=== PATIENT | female | born 1945 | race Caucasian/White ===

== ENCOUNTER 2018-07-13 19:32 | Inpatient (IN) | payer BC, MEDICARE ==
[~2018-07-13] VITALS: Ht 162.6 cm; Wt 66.7 kg
[~2018-07-13 19:32] MED LIST: ASTELIN30 ML; DEXAMETHASONE SOD PHOS INJ 4 MG/ML VIAL ONE; FIORICET; LIDOCAINE HCL 2% LOCAL INJ 5 ML SDV VIAL INJ ONE; ONDANSETRON HCL INJ 2MG/ML 2ML 2 MG/ML VIAL ONE; PROPOFOL IV EMULSION 10 MG/ML 20 ML VIAL ONE; SEVOFLURANE INHAL SOLN 250 ML PEN BTL ONE; Z.0.ALLEGRA60 MG; Z.0.BENICAR HCT 201; Z.0.CRESTOR5 MG PO; Z.0.EVISTA60 MG PO; Z.0.REGLAN10 MG PO; Z.0.TOPROL XL25 MG PO; Z.0.ZEGERID 40 MG1 E PO
--- OUTSIDE RECORDS SUMMARY | 2018-07-13 19:34 | XMS REPORT | Clinical Summary ---
Author Author [facility] Address Unknown Phone Unavailable Care Team Providers Care Embossograph Operator Name Role Phone Luisito Lassiter MD PCP Allergies Comments Active Allergy Reactions Severity Noted Date NAUSEA Ciprofloxacin GI 08/22/2016 Intolerance Phenytoin Sodium Extended Itching 08/21/2016 Levofloxacin Itching 08/22/2016 "HEADACHES" Escitalopram Oxalate Other (See 08/22/2016 Comments) Nitrofurantoin Itching 08/21/2016 Monohyd/M-Cryst " stomach cramps". States she drinks lactose free milk. Milk Diarrhea 08/22/2016 States severe leg cramps. Mbnjtgc-Fzg-Vxh Reductase Other (See 11/14/2016 Inhibitors Comments) " leg cramps" Ezetimibe-Simvastatin Other (See 08/21/2016 Comments) Watermelon 02/20/2018 Medications End Date Status Medication Sig Dispensed Refills Start Date Active metoprolol succinate XL Take 25 mg by 0 (TOPROL-XL) 25 mg 24 hr mouth every tablet morning. Active olmesartan (BENICAR) 20 Take 30 mg by 0 MG tablet mouth every morning. Active omeprazole-sodium Take 1 0 bicarbonate (ZEGERID) capsule by 40-1.1 mg-gram per mouth daily capsule before breakfast. Active raloxifene (EVISTA) 60 mg Take 60 mg by 0 tablet mouth every evening. Active metFORMIN (GLUCOPHAGE) Take 1,000 mg 0 1,000 mg tablet by mouth 2 (two) times a day with meals. Active sucralfate (CARAFATE) 1 Take 1 g by 0 gram tablet mouth 2 (two) times a day. Active chlordiazepoxide-clidiniu Take 1 0 m (LIBRAX) 5-2.5 mg per capsule by capsule mouth 2 (two) times a day. Active ondansetron ODT Take 4 mg by 0 (ZOFRAN-ODT) 4 MG mouth every 8 disintegrating tablet (eight) hours as needed for nausea or vomiting. Active fenofibrate (TRICOR) 48 Take 48 mg by 0 MG tablet mouth every evening. Active UBIDECARENONE (COQ-10 Take by 0 ORAL) mouth. Active cyanocobalamin (vitamin Take 1,000 0 B-12) 1000 MCG tablet mcg by mouth daily. Active METHYLCELLULOSE (CITRUCEL Take by 0 ORAL) mouth. Active butalbital-acetaminophen- Take 1 tablet 0 caff (FIORICET, ESGIC) by mouth 50-325-40 mg per tablet every 4 (four) hours as needed for headaches. Active azelastine (ASTELIN) 137 1 spray into 0 mcg (0.1 %) nasal spray each nostril 2 (two) times a day. Use in each nostril as directed Active traMADol (ULTRAM) 50 mg Take 50 mg by 0 tablet mouth every 6 (six) hours as needed for moderate pain. 02/14/2018 Discontinued empty container (NASAL 0 SPRAY BOTTLE) bottle 02/14/2018 Discontinued SACCHAROMYCES BOULARDII Take by 0 (PROBIOTIC, S.BOULARDII, mouth. ORAL) 02/14/2018 Discontinued azelastine (ASTELIN) 137 1 spray into 0 mcg (0.1 %) nasal spray each nostril 2 (two) times a day. Use in each nostril as directed 02/14/2018 Discontinued wxgnehgjqq-oznxtcj-vtryif Take 1 0 ne (FIORINAL) 50-325-40 capsule by mg per capsule mouth every 4 (four) hours as needed for headaches. 02/14/2018 Discontinued HYDROcodone-acetaminophen Take 1 tablet 0 (NORCO) 5-325 mg per by mouth tablet every 6 (six) hours as needed for moderate pain. 02/14/2018 Discontinued acetaminophen-codeine Take 1 tablet 0 (TYLENOL WITH CODEINE #3) by mouth 300-30 mg per tablet every 4 (four) hours as needed for moderate pain. 02/14/2018 Discontinued MULTIVITAMIN ORAL Take by 0 mouth. 02/14/2018 Discontinued kesjywo-[id number]-N-[id number] Take by 0 erals 500 mg calcium- 400 mouth. unit-15 mcg tablet 02/20/2018 Discontinued omeprazole/sodium Take 40 mg by 0 bicarbonate (ZEGERID mouth 2 (two) ORAL) times a day. 02/20/2018 Discontinued vitamin E 400 UNIT Take 400 0 capsule Units by mouth daily. Active Problems No known active problems Encounters Care Team Description Date Type Specialty Ted Mercado MD TRANSFORAMINAL EPIDURAL STEROID INJECTION L4-5 05/28/2018 Surgery Missy Hough MD 05/28/2018 Anesthesia Event Ted Mercado MD 05/28/2018 Hospital Encounter Ted Mercado MD Low back pain, unspecified back pain laterality, unspecified chronicity, with sciatica presence unspecified (Primary Dx) 04/29/2018 Transcribe Physical Therapy Orders Ted Mercado MD Low back pain, unspecified back pain laterality, unspecified chronicity, with sciatica presence unspecified (Primary Dx) 03/28/2018 Transcribe Physical Therapy Orders Ted Mercado MD Arthralgia of hip, unspecified laterality (Primary Dx); Low back pain, unspecified back pain laterality, unspecified chronicity, with sciatica presence unspecified 03/12/2018 Transcribe Physical Therapy Orders Porter Villagomez MD 02/20/2018 Anesthesia General Surgery Event Krys Hampton MD EXCISION, LEFT UPPER LIP LESION W/ CLOSURE 02/20/2018 Surgery General Surgery Krys Hampton MD Preoperative testing 02/20/2018 Hospital General Surgery Encounter Krys Hampton MD 02/14/2018 Hospital Radiology Encounter Krys Hampton MD Preoperative testing (Primary Dx) 02/14/2018 Pre-Admit Pre-Admission Testing Testing Appointment Krys Hampton MD Lip lesion 01/25/2018 Hospital Radiology Encounter Krys Hampton MD Lip lesion (Primary Dx) 01/17/2018 Transcribe Access Orders Ted Mercado MD Low back pain, unspecified back pain laterality, unspecified chronicity, with sciatica presence unspecified (Primary Dx) 12/04/2017 Transcribe Physical Therapy Orders Ted Mercado MD EPIDURAL STERIOD INJECTION CAUDAL 10/23/2017 Surgery Xu Adams MD 10/23/2017 Anesthesia Event Ted Mercado MD 10/23/2017 Hospital Encounter eKo Diaz DPM, MD Peroneal tendinitis of left lower extremity (Primary Dx) 10/09/2017 Transcribe Physical Therapy Orders Keo Diaz DPM, MD 10/04/2017 Telephone Physical Therapy Keo Diaz DPM, MD Peroneal tendinitis of left lower extremity (Primary Dx) 09/04/2017 Transcribe Physical Therapy Orders after 07/12/2017 Family History Medical History Relation Name Comments Hypertension Mother Relation Name Status Comments Mother Social History Date Tobacco Use Types Packs/Day Years Used Never Smoker Smokeless Tobacco: Never Used Alcohol Use Drinks/Week oz/Week Comments No Sex Assigned at Date Recorded Not on file Industry Job Start Date Occupation Not on file Not on file Not on file Travel End Travel History Travel Start No recent travel history available. Last Filed Vital Signs Time Taken Vital Sign Reading 05/28/2018 9:15 AM [employer]CRETE PANEL IN[employer]ALL[employer] Blood Pressure 162/88 05/28/2018 9:20 AM CONCRETE PANEL INSTALLER Pulse 69 05/28/2018 8:45 AM CONCRETE PANEL INSTALLER Temperature 36.7 C (98 F) 05/28/2018 9:05 AM CONCRETE PANEL INSTALLER Respiratory Rate 20 05/28/2018 9:20 AM CONCRETE PANEL INSTALLER Oxygen Saturation 98% - Inhaled Oxygen - Concentration 05/28/2018 7:09 AM CONCRETE PANEL INSTALLER Weight 61.9 kg (136 lb 6.4 oz) 05/28/2018 7:09 AM CONCRETE PANEL INSTALLER Height 157.5 cm (5' 2") 05/28/2018 7:09 AM CONCRETE PANEL INSTALLER Body Mass Index 24.95 Plan of Treatment Health Maintenance Due Date Last Done Comments BREAST CANCER SCREENING 1996 COLON CANCER SCREENING 1996 SHINGLES VACCINES (1 of 1996 2) PNEUMOCOCCAL 09/01/2011 POLYSACCHARIDE VACCINE AGE 65 AND OVER PNEUMOCOCCAL-13 09/01/2011 INFLUENZA VACCINE 01/16/2018 Procedures Comments Procedure Name Priority Date/Time Associated Diagnosis INJECTION, STEROID, 05/28/2018 CHRONIC PAIN, SPINE, LUMBAR, EPIDURAL, 9:05 AM CONCRETE PANEL INSTALLER SPONDYLOSIS, LUMBOSACRAL, SINGLE SPINAL STENOSIS OR FL < 1 HOUR Routine 05/28/2018 8:35 AM CONCRETE PANEL INSTALLER ECG 12-LEAD STAT 05/28/2018 7:49 AM CONCRETE PANEL INSTALLER POC GLUCOSE Routine 05/28/2018 7:28 AM CONCRETE PANEL INSTALLER POC GLUCOSE Routine 02/20/2018 2:36 PM CDT SURGICAL PATHOLOGY Routine 02/20/2018 REQUEST 1:31 PM CDT W[place] AN ELECTIVE Routine 02/20/2018 ENDOTRACHEAL AIRWAY 1:21 PM CDT Procedure Note - Porter Villagomez MD - 02/20/2018 1:21 PM CDT Airway Performed by: PORTER VILLAGOMEZ Authorized by: PORTER VILLAGOMEZ Location: OR Urgency: Elective Difficult Airway: No Anesthesio logist: PORTER VILLAGOMEZ Performed by: anesthesineo avalos Preoxygena gustavo with 100% O2: Yes C-spine Precaution s Maintained Throughout : Yes Mask Ventilatio n: Easy mask Final Airway Type: Endotrache al airway Final Endotrache al Airway: ETT Cuffed: Yes Technique Used: Direct laryngosco py Devices/Me thods Used in Placement: Intubatin g stylet Insertion Site: Oral Blade Type: Anders Laryngosco pe Blade/Vide olaryngosc ope Blade Size: 2 ETT Size (mm): 7.0 Measured from: Lips ETT to Lips (cm): 21 Placement Verified by: CO2 detection, direct visualizat ion and equal breath sounds Laryngosco pic view: Grade IIa - partial view of glottis Rapid Sequence Induction (RSI): No Modified RSI: No Number of Attempts at Approach: 1 EXCISION, MASS 02/20/2018 VASCULAR LIP LESION 12:30 PM CDT K13.79, L98.9 POC GLUCOSE Routine 02/20/2018 11:22 AM CDT XR CHEST 2 VW Routine 02/14/2018 Preoperative testing 4:22 PM CDT ECG 12-LEAD Routine 02/14/2018 Preoperative testing 3:41 PM CDT PARTIAL THROMBOPLASTIN Routine 02/14/2018 Preoperative testing TIME (PTT) 3:41 PM CDT PROTHROMBIN TIME WITH INR Routine 02/14/2018 Preoperative testing 3:41 PM CDT US SOFT TISSUE HEAD NECK Routine 01/25/2018 Lip lesion 3:00 PM CDT INJECTION, STEROID, 10/23/2017 CHRONIC PAIN, SPINAL SPINE, LUMBAR, EPIDURAL, 10:02 AM CDT STENOSIS, LOW BACK PAIN SINGLE OR FL < 1 HOUR Routine 10/23/2017 10:00 AM CDT POC GLUCOSE Routine 10/23/2017 9:26 AM CDT ECG 12-LEAD STAT 10/23/2017 9:06 AM CDT after 07/12/2017 Results * OR FL < 1 Hour (05/28/2018 8:35 AM CONCRETE PANEL INSTALLER) Only the most recent of 2 results within the time period is included. Narrative Performed At EXAMINATION:OR FL 1 HOUR [facility] C-arm fluoroscopy was requested in OR. FLUORO TIME 00:15 IMAGE 0 IMPRESSION: Separate operative report will be issued by the physician performing the procedure. [id number] Procedure Note Hm Interface, Radiology Results Incoming - 05/28/2018 11:58 AM CONCRETE PANEL INSTALLER EXAMINATION: OR FL 1 HOUR C-arm fluoroscopy was requested in OR. FLUORO TIME 00:15 IMAGE 0 IMPRESSION: Separate operative report will be issued by the physician performing the procedure. [id number] Performing Organization Address [facility] Cent[facility] Phone Number [facility] [address] [place] [address] * ECG 12 lead (05/28/2018 7:49 AM CONCRETE PANEL INSTALLER) Only the most recent of 3 results within the time period is included. Ventricular rate 70 [facility] Atrial rate 70 [facility] WV interval 150 [facility] QRSD interval 86 [facility] QT interval 494 [facility] QTC interval 533 [facility] P axis 1 57 [facility] QRS axis 1 -25 [facility] T wave axis 12 [facility] EKG impression Normal sinus rhythm-Prolonged [facility] QT-Abnormal ECG-In automated comparison with ECG of 14-FEB-2018 15:41,-No significant change was found- Narrative Performed At Performing Organization Address [facility] Cent[facility]t Phone Number [employer] M[facility] [address] [place] [address] * POC glucose (05/28/2018 7:28 AM CONCRETE PANEL INSTALLER) Only the most recent of 4 results within the time period is included. POC glucose 114 (H) 65 - 99 mg/dL [facility] Comment: [facility] Meter ID: [id number] Health Education Specialist: Nacho Lord Performing Organization Address City/State/Zipcode Phone Number [facility] [place] [id number] [place] [address] [place] [address] PATHOLOGY AND GENOMIC MEDICINE [address] [place] [address] [facility] * Surgical pathology request (02/20/2018 1:31 PM CDT) [facility] DEPARTMENT OF PATHOLOGY AND GENOMIC MEDICINE Surgical pathology report See link below for PDF Lab [facility] DEPARTMENT OF Report PATHOLOGY AND GENOMIC MEDICINE Result status This is Final Report for [facility] DEPARTMENT OF [id number] PATHOLOGY AND GENOMIC MEDICINE Performing Organization Address [facility] Phone Number [facility] DEPARTMENT [address] [place] [phone] PATHOLOGY AND GENOMIC MEDICINE * XR Chest 2 Vw (02/14/2018 4:22 PM CDT) Narrative Performed At EXAMINATION:XR CHEST 2 VW [facility] CLINICAL HISTORY:Z01.818 Encounter for other preprocedural examination, PREOP COMPARISON:November 01, 2013. FINDINGS:The heart is enlarged. The mediastinum is otherwise unremarkable. The lungs are free of acute abnormalities. There is mild scarring or atelectasis at the lung bases. IMPRESSION: 1. Mild scarring or atelectasis at the lung bases. 2. Heart size is borderline [id number] Procedure Note Interface, Radiology Results Incoming - 02/14/2018 5:12 PM CDT EXAMINATION: XR CHEST 2 VW CLINICAL HISTORY: Z01.818 Encounter for other preprocedural examination, PREOP COMPARISON: November 01, 2013. FINDINGS:The heart is enlarged. The mediastinum is otherwise unremarkable. The lungs are free of acute abnormalities. There is mild scarring or atelectasis at the lung bases. IMPRESSION: 1. Mild scarring or atelectasis at the lung bases. 2. Heart size is borderline [id number] Performing Organization Address City/[facility]/Zipcode Phone Number [facility] [address] [place] [address] * Partial thromboplastin time, activated (02/14/2018 3:41 PM CDT) PTT 29.4 23.0 - 36.0 sec [facility] DEPARTMENT OF Comment: PATHOLOGY AND PTT therapeutic range for GENOMIC MEDICINE unfractionated heparin is 61.0-112.0 seconds which corresponds to Anti-Xa 0.3-0.7 U/ml. Specimen Blood Performing Organization Address [facility] Phone Number [address] [place] [phone] PATHOLOGY AND [employer] MEDICINE * Prothrombin time with INR (02/14/2018 3:41 PM CDT) Prothrombin time 12.6 12.0 - 15.0 sec [facility] DEPARTMENT OF PATHOLOGY AND [employer] MEDICINE INR 0.9 [facility] DEPARTMENT OF Comment: PATHOLOGY AND The International Normalized GENOMIC MEDICINE Ratio (INR) is a therapeutic monitoring tool for patients who are stable on oral anticoagulant therapy. An INR of 2.0-3.0 is suggested for deep vein thrombosis/pulmonary embolism. Specimen Blood Performing Organization Address [facility] Phone Number [address] [place] [phone] PATHOLOGY AND [facility] MEDICINE * US Soft Tissue Head Neck (01/25/2018 3:00 PM CDT) Narrative Performed At EXAMINATION:US SOFT TISSUE HEAD NECK [facility] CLINICAL HISTORY:K13.0 Diseases of lips, L UPPER LIP VASCULAR LESION COMPARISON:None. Real-time ultrasound images performed. Permanent ultrasound images obtained for the patient's record. FINDINGS: Limited ultrasound scanning performed over the left upper lip at site of a palpable nodule near the vermilion border. Hypoechoic nodule extending from the skin surface identified. Nodule measures approximately 1.6 cm x 1.7 cm x 1.5 cm. Mild lobulation of border is noted. Punctate echogenicities within the nodule are noted possibly representing phleboliths. Color flow and spectral wave Doppler evaluation demonstrated no significant internal flow. Small vessels at the periphery of the nodule demonstrating arterial and venous flow noted. No large arterial feeder vessels or draining veins identified. IMPRESSION: Approximate 1.6 cm nodule deep to the cutaneous lesion at the left upper lip per million border Punctate echogenicities within the nodule possibly represent phleboliths. No significant internal flow Small peripheral arterial and venous vessels No large, arterial or venous vessels [id number] Procedure Note Interface, Radiology Results Incoming - 01/25/2018 4:27 PM CDT EXAMINATION: US SOFT TISSUE HEAD NECK CLINICAL HISTORY: K13.0 Diseases of lips, L UPPER LIP VASCULAR LESION COMPARISON: None. Real-time ultrasound images performed. Permanent ultrasound images obtained for the patient's record. FINDINGS: Limited ultrasound scanning performed over the left upper lip at site of a palpable nodule near the vermilion border. Hypoechoic nodule extending from the skin surface identified. Nodule measures approximately 1.6 cm x 1.7 cm x 1.5 cm. Mild lobulation of border is noted. Punctate echogenicities within the nodule are noted possibly representing phleboliths. Color flow and spectral wave Doppler evaluation demonstrated no significant internal flow. Small vessels at the periphery of the nodule demonstrating arterial and venous flow noted. No large arterial feeder vessels or draining veins identified. IMPRESSION: Approximate 1.6 cm nodule deep to the cutaneous lesion at the left upper lip per million border Punctate echogenicities within the nodule possibly represent phleboliths. No significant internal flow Small peripheral arterial and venous vessels No large, arterial or venous vessels [id number] Performing Organization Address City/State/Zipcode Phone Number [facility] [address] [place] [address] after 07/12/2017 Insurance Payer Benefit Subscriber ID Type Phone Address Plan / Group HUMANA MEDICARE HUMANA xxxxxxxxx PPO MEDICARE PPO[facility]PFFS/E [facility] Advance Directives Patient has advance care planning documents on file. For more information, mathew walker contact: [facility] [address] [place] [address]
[2018-07-13] MEDS ORDERED: KETOROLAC TROMETHAMINE 30 MG/ML VIAL IV NR (20:00)
[2018-07-13 20:15] LABS: BASOPHILS % 0.3 % (0.0-1.0); EOSINOPHILS # (AUTO) 0.1 (0.0-0.4); HEMATOCRIT 30.3 % (34.2-44.1); HEMOGLOBIN 10.1 g/dL (12.0-16.0); LYMPHOCYTES % 9.9 % (18.0-39.1); MEAN CORPUSCULAR HEMOGLOBIN 27.8 pg (28-32); MEAN CORPUSCULAR HGB CONC 33.3 g/dL (31-35); MEAN CORPUSCULAR VOLUME 83.5 fL (81-99); MONOCYTES # (AUTO) 0.6 (0.2-0.8); MONOCYTES % 5.9 % (4.4-11.3); NEUTROPHILS # (AUTO) 8.3 (2.1-6.9); NEUTROPHILS % 82.5 % (38.7-80.0); PLATELET COUNT 283 x10e3/uL (140-360); RED BLOOD COUNT 3.63 x10e6/uL (3.6-5.1); RED CELL DISTRIBUTION WIDTH 15.1 % (11.7-14.4)
--- NOTE | 2018-07-13 20:22 | NUR ---
URINE OBTAINED FROM FOR LAB ANALYSIS
[2018-07-13 20:27] LABS: ALBUMIN 4.5 g/dL (3.5-5.0); ALBUMIN/GLOBULIN RATIO 1.7 (0.8-2.0); ANION GAP 17.9 mmol/L (8-16); CALCIUM 10.4 mg/dL (8.4-10.2); CREATININE, SERUM 1.2 mg/dL (0.57-1.11); POTASSIUM 3.9 mmol/L (3.5-5.1)
--- NOTE | 2018-07-13 20:39 | Diagnostic Imaging Report ---
EXAM: CT Abdomen and Pelvis WITHOUT contrast INDICATION: LEFT FLANK PAIN, HX CHRONIC KIDNEY STONES COMPARISON: None. TECHNIQUE: Abdomen and pelvis were scanned utilizing a multidetector helical scanner from the lung base to the pubic symphysis without administration of IV contrast. Absence of intravenous contrast decreases sensitivity for detection of focal lesions and vascular pathology. Coronal and sagittal reformations were obtained. Routine protocol was performed. IV CONTRAST: None ORAL CONTRAST: Water COMPLICATIONS: None RADIATION DOSE: Total DLP: 302 mGy*cm Estimated effective dose: (DLP x 0.015 x size factor) mSv Dose modulation, iterative reconstruction, and/or weight based adjustment of the mA/kV was utilized to reduce the radiation dose to as low as reasonably achievable. FINDINGS: LINES and TUBES: None. LOWER THORAX: Unremarkable HEPATOBILIARY: No focal hepatic lesions. No biliary ductal dilation. GALLBLADDER: Absent SPLEEN: No splenomegaly. PANCREAS: No focal masses or ductal dilatation. ADRENALS: Left adrenal 1.2 cm nodule, indeterminate measuring 38 Hounsfield unit. 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 KIDNEYS/URETERS: Moderate left hydroureteronephrosis secondary to a 0.7 x 0.5 x 0.5 cm (SI x AP x TV) stone in the distal left ureter with perinephric and periureteral stranding. Additional nonobstructing calculi measuring up to 0.6 cm. No right hydronephrosis. Lobulated contours of the right kidney. Multiple nonobstructing calculi measuring up to 0.4 cm. GI TRACT: No abnormal distention, wall thickening, or evidence of bowel obstruction. There are diverticula within the colon without evidence of diverticulitis. Appendix is normal. PELVIC ORGANS/BLADDER: Hysterectomy. LYMPH NODES: No lymphadenopathy. VESSELS: There is mild atherosclerotic disease in the aorta and major arterial branches. No abdominal aortic aneurysm. PERITONEUM / RETROPERITONEUM: No free air or fluid. BONES: There are mild degenerative changes in the lumbar spine. SOFT TISSUES: Unremarkable. IMPRESSION: 1. Obstructing 0.7 x 0.5 x 0.5 cm stone in the distal left ureter causing moderate upstream hydroureteronephrosis. 2. Additional nonobstructing calculi bilaterally. 3. Colonic diverticulosis. 4. Indeterminate left adrenal 1.[address] renal mass protocol for further characterization. Signed by: DR. Jason Juarez MD on 07/13/2018 8:36 PM
[2018-07-13 21:04] LABS: COLOR,URINE YELLOW (YELLOW); LEUKOCYTE ESTERASE ,URINE NEGATIVE (NEGATIVE); NITRITE,URINE NEGATIVE (NEGATIVE)
[2018-07-13 21:05] LABS: BILIRUBIN,URINE NEGATIVE (NEGATIVE); CLARITY,URINE SL CLOUDY (CLEAR); KETONES,URINE NEGATIVE (NEGATIVE); PROTEIN,URINE DIPSTICK TRACE (NEGATIVE); URINE UROBILINOGEN 0.2 mg/dL (0.2 - 1)
[2018-07-13 21:18] LABS: EPITHELIAL CELLS,URINE RARE /LPF; TRANSITIONAL EPI CELLS,URINE RARE; WBC,URINE (MAN) 0-5 /HPF (0-5)
[2018-07-13 21:19] LABS: AMORPHOUS SEDIMENT,URINE MODERATE (FEW)
[2018-07-13] MEDS ORDERED: MORPHINE SULFATE 2 MG/ML SYR 1ML IV PRN (21:30)
[2018-07-13] MEDS ORDERED: ONDANSETRON HCL INJ 2MG/ML 2ML 2 MG/ML VIAL IV PRN (21:30)
--- OUTSIDE RECORDS SUMMARY | 2018-07-13 22:10 | XMS REPORT ---
Author Author [facility] Address Unknown Phone Unavailable Care Team Providers Care Flow Nurse Name Role Phone Kitty BECERRA Unavailable Unavailable Problems This patient has no known problems. Allergies, Adverse Reactions, Alerts This patient has no known allergies or adverse reactions. Medications This patient has no known medications. Results Test Description Test Time Test Comments Text Results Atomic Results Result Comments CT ABDOMEN/PELVIS WO 2018-07-13 20:22:00 [place] [address] Patient Name: PORFIRIO GUIDRY MR #: [id number] : 1945 Age/Sex: 72/F Req #: [id number] Adm Physician: Ordered by: EDISON BECERRA MD Report #: [id number] Location: ER Room/Bed: Procedure: [id number] CT/CT ABDOMEN/PELVIS WO Exam Date: 07/13/18 Exam Time: 2004 REPORT STATUS: Signed EXAM: CT Abdomen and Pelvis WITHOUT contrast INDICATION: LEFT FLANK PAIN, HX CHRONIC KIDNEY STONES COMPARISON: None. TECHNIQUE: Abdomen and pelvis were scanned utilizing a multidetector helical scanner from the lung base to the pubic symphysis without administration of IV contrast. Absence of intravenous contrast decreases sensitivity for detection of focal lesions and vascular pathology. Coronal and sagittal reformations were obtained. Routine protocol was performed. IV CONTRAST: None ORAL CONTRAST: Water COMPLICATIONS: None RADIATION DOSE: Total DLP: 302 mGy*cm Estimated effective dose: (DLP x 0.015 x size factor) mSv Dose modulation, iterative reconstruction, and/or weight based adjustment of the mA/kV was utilized to reduce the radiation dose to as low as reasonably achievable. FINDINGS: LINES and TUBES: None. LOWER THORAX: Unremarkable HEPATOBILIARY: No focal hepatic lesions. No biliary ductal dilation. GALLBLADDER: Absent SPLEEN: No splenomegaly. PANCREAS: No focal masses or ductal dilatation. ADRENALS: Left adrenal 1.2 cm nodule, indeterminate measuring 38 Hounsfield unit. 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 KIDNEYS/URETERS: Moderate left hydroureteronephrosis secondary to a 0.7 x 0.5 x 0.5 cm (SI x AP x TV) stone in the distal left ureter with perinephric and periureteral stranding. Additional nonobstructing calculi measuring up to 0.6 cm. No right hydronephrosis. Lobulated contours of the right kidney. Multiple nonobstructing calculi measuring up to 0.4 cm. GI TRACT: No abnormal dist ention, wall thickening, or evidence of bowel obstruction. There are diverticula within the colon without evidence of diverticulitis. Appendix is normal. PELVIC ORGANS/BLADDER: Hysterectomy. LYMPH NODES: No lymphadenopathy. VESSELS: There is mild atherosclerotic disease in the aorta and major arterial branches. No abdominal aortic aneurysm. PERITONEUM / RETROPERITONEUM: No free air or fluid. BONES: There are mild degenerative changes in the lumbar spine. SOFT TISSUES: Unremarkable. IMPRESSION: 1. Obstructing 0.7 x 0.5 x 0.5 cm stone in the distal left ureter causing moderate upstream hydroureteronephrosis. 2. Additional nonobstructing calculi bilaterally. 3. Colonic diverticulosis. 4. Indeterminate left adrenal 1.[address] renal mass protocol for further characterization. Signed by: DR. Jason Castillo MD on 07/13/2018 8:36 PM Dictated By: JASON CASTILLO MD 35 Transcribed By: BRIEN on 07/13/182035 COPY TO: EDISON BECERRA MD
--- OUTSIDE RECORDS SUMMARY | 2018-07-13 22:10 | XMS REPORT | Clinical Summary ---
Author Author [facility] Organization [facility] Address Unknown Phone Unavailable Care Team Providers Care Supervisor Records Change Name Role Phone Luisito Lassiter MD PCP Allergies Comments Active Allergy Reactions Severity Noted Date NAUSEA Ciprofloxacin GI 08/22/2016 Intolerance Phenytoin Sodium Extended Itching 08/21/2016 Levofloxacin Itching 08/22/2016 "HEADACHES" Escitalopram Oxalate Other (See 08/22/2016 Comments) Nitrofurantoin Itching 08/21/2016 Monohyd/M-Cryst " stomach cramps". States she drinks lactose free milk. Milk Diarrhea 08/22/2016 States severe leg cramps. Wkkotjt-Nro-Xrh Reductase Other (See 11/14/2016 Inhibitors Comments) " [...] in each nostril as directed 02/14/2018 Discontinued veylhduyqx-cciodya-oyatvn Take 1 0 ne (FIORINAL) 50-325-40 capsule [...] ORAL Take by 0 mouth. 02/14/2018 Discontinued pjpzewq-[id number] Take by 0 erals 500 mg calcium- [...] Event Ted Mercado MD 10/23/2017 Hospital Encounter Keo Diaz DPM, MD Peroneal tendinitis of [...] Taken Vital Sign Reading 05/28/2018 9:15 AM ATMOSPHERIC SCIENCES PROFESSOR Blood Pressure 162/88 05/28/2018 9:20 AM ATMOSPHERIC SCIENCES PROFESSOR Pulse 69 05/28/2018 8:45 AM ATMOSPHERIC SCIENCES PROFESSOR Temperature 36.7 C (98 F) 05/28/2018 9:05 AM ATMOSPHERIC SCIENCES PROFESSOR Respiratory Rate 20 05/28/2018 9:20 AM ATMOSPHERIC SCIENCES PROFESSOR Oxygen Saturation 98% - Inhaled Oxygen - Concentration 05/28/2018 7:09 AM ATMOSPHERIC SCIENCES PROFESSOR Weight 61.9 kg (136 lb 6.4 oz) 05/28/2018 7:09 AM ATMOSPHERIC SCIENCES PROFESSOR Height 157.5 cm (5' 2") 05/28/2018 7:09 AM ATMOSPHERIC SCIENCES PROFESSOR Body Mass Index 24.95 Plan of Treatment Health Maintenance Due Date Last Done Comments BREAST CANCER SCREENING 1996 COLON CANCER SCREENING 1996 SHINGLES VACCINES (1 of 1996 2) PNEUMOCOCCAL 09/01/2011 POLYSACCHARIDE VACCINE AGE 65 AND OVER PNEUMOCOCCAL-13 09/01/2011 INFLUENZA VACCINE 01/16/2018 Procedures Comments Procedure Name Priority Date/Time Associated Diagnosis INJECTION, STEROID, 05/28/2018 CHRONIC PAIN, SPINE, LUMBAR, EPIDURAL, 9:05 AM ATMOSPHERIC SCIENCES PROFESSOR SPONDYLOSIS, LUMBOSACRAL, SINGLE SPINAL STENOSIS OR [place] < 1 HOUR Routine 05/28/2018 8:35 AM ATMOSPHERIC SCIENCES PROFESSOR ECG 12-LEAD STAT 05/28/2018 7:49 AM ATMOSPHERIC SCIENCES PROFESSOR POC GLUCOSE Routine 05/28/2018 7:28 AM ATMOSPHERIC SCIENCES PROFESSOR POC GLUCOSE Routine 02/20/2018 2:36 PM CDT SURGICAL PATHOLOGY Routine 02/20/2018 REQUEST 1:31 PM CDT SC AN ELECTIVE Routine 02/20/2018 ENDOTRACHEAL AIRWAY 1:21 [...] FL < 1 Hour (05/28/2018 8:35 AM ATMOSPHERIC SCIENCES PROFESSOR) Only the most recent of 2 results within the time period is included. Narrative Performed At EXAMINATION:[place] 1 HOUR [facility] C-arm fluoroscopy was requested in OR. FLUORO TIME 00:15 IMAGE 0 IMPRESSION: Separate operative report will be issued by the physician performing the procedure. [id number] Procedure Note Hm Interface, Radiology Results Incoming - 05/28/2018 11:58 AM ATMOSPHERIC SCIENCES PROFESSOR EXAMINATION: [place] 1 HOUR C-arm fluoroscopy was requested in OR. FLUORO TIME 00:15 IMAGE 0 IMPRESSION: Separate operative report will be issued by the physician performing the procedure. [id number] Performing Organization Address [facility] Phone Number [facility] [address] [place] [address] * ECG 12 lead (05/28/2018 7:49 AM ATMOSPHERIC SCIENCES PROFESSOR) Only the most recent of 3 results within the time period is included. Ventricular rate 70 [facility] Atrial rate 70 [facility] SC interval 150 [facility] QRSD interval 86 [facility] QT interval 494 [facility] QTC interval 533 [facility] P axis 1 57 [facility] QRS axis 1 -25 [facility] T wave axis 12 [facility] EKG impression Normal sinus rhythm-Prolonged [facility] MUSE QT-Abnormal ECG-In automated comparison with ECG of 14-FEB-2018 15:41,-No significant change was found- Narrative Performed At Performing Organization Address [facility] Phone Number [facility] [address] [place] [address] * POC glucose (05/28/2018 7:28 AM ATMOSPHERIC SCIENCES PROFESSOR) Only the most recent of 4 results within the time period is included. POC glucose 114 (H) 65 - 99 mg/dL [facility] Comment: [facility] Meter ID: [id number] Map Plotter: Nacho Lord Performing Organization Address City/State/Zipcode Phone Number [facility] [address] [id number] [place] [address] [place] [address] PATHOLOGY AND GENOMIC MEDICINE [address] [place] [address] [facility] * Surgical pathology request (02/20/2018 1:31 PM CDT) [facility] DEPARTMENT OF PATHOLOGY AND GENOMIC MEDICINE Surgical pathology report See link below for PDF Lab [facility] DEPARTMENT OF Report PATHOLOGY AND GENOMIC MEDICINE Result status This is Final Report for [facility] DEPARTMENT OF [id number] PATHOLOGY AND GENOMIC MEDICINE Performing Organization Address [facility] Phone Number [facility] DEPARTMENT [address] [place] [phone] PATHOLOGY AND GENOMIC MEDICINE * XR Chest [...] lung bases. 2. Heart size is borderline [id number] Procedure Note Interface, Radiology Results Incoming - [...] lung bases. 2. Heart size is borderline [id number] Performing Organization Address City/[facility]/Zipcode Phone Number [facility] [address] [place] [address] * Partial thromboplastin time, activated (02/14/2018 3:41 PM CDT) PTT 29.4 23.0 - 36.0 sec [facility] DEPARTMENT OF Comment: PATHOLOGY AND PTT therapeutic range for GENOMIC MEDICINE unfractionated heparin is 61.0-112.0 seconds which corresponds to Anti-Xa 0.3-0.7 U/ml. Specimen Blood Performing Organization Address [facility] Phone Number [address] [place] [phone] PATHOLOGY AND [facility] * Prothrombin time with INR (02/14/2018 3:41 PM CDT) Prothrombin time 12.6 12.0 - 15.0 sec [facility] DEPARTMENT OF PATHOLOGY AND [facility] INR 0.9 [facility] DEPARTMENT OF Comment: PATHOLOGY AND The International Normalized GENOMIC MEDICINE Ratio (INR) is a therapeutic monitoring tool for patients who are stable on oral anticoagulant therapy. An INR of 2.0-3.0 is suggested for deep vein thrombosis/pulmonary embolism. Specimen Blood Performing Organization Address [facility] Phone Number [address] [place] [phone] PATHOLOGY AND [facility] * US Soft Tissue Head Neck [...] vessels No large, arterial or venous vessels [id number] Procedure Note Interface, Radiology Results Incoming - [...] vessels No large, arterial or venous vessels [id number] Performing Organization Address City/State/Zipcode Phone Number [facility] [address] [place] [address] after 07/12/2017 Insurance Payer Benefit Subscriber ID Type Phone Address Plan / Group HUMANA MEDICARE HUMANA xxxxxxxxx PPO MEDICARE PPO/PFFS/E [facility] Advance Directives Patient has advance care planning documents on file. For more information, mathew walker contact: [facility] [address] [place] [address]
[2018-07-13] MEDS ORDERED: METFORMIN HCL500 MG PO (22:13)
[2018-07-13] MEDS ORDERED: ASTEPRO205.5 MCG/ (22:13)
[2018-07-13] MEDS ORDERED: TRICOR48 MG PO (22:13)
[2018-07-13] MEDS ORDERED: ULTRAM 50MG50 MG PO (22:13)
[2018-07-13] MEDS ORDERED: SUCRALFATE1 GM PO (22:13)
[2018-07-13] MEDS ORDERED: ZOFRAN4 MG PO (22:13)
[2018-07-13] MEDS ORDERED: CEFUROXIME500 MG PO (22:13)
[2018-07-13] MEDS ORDERED: LIBRAX CAPSULE1 EACH PO (22:13)
[2018-07-13] MEDS ORDERED: FIORINAL 50-321 EACH PO (22:13)
[2018-07-13] MEDS ORDERED: BENICAR20 MG PO (22:13)
[2018-07-13] MEDS ORDERED: DEXTROSE 50% SYRINGE 50 ML IV PRN (22:30)
[2018-07-13 22:55] VITALS: BP 142/79
[2018-07-13 22:57] VITALS: BP 142/79
[2018-07-13] MEDS: SODIUM CHLORIDE 0.9% 1000ML 1,000 ML IV SCH (23:21)
[2018-07-13] MEDS: CEFUROXIME AXETIL 250 MG TAB PO SCH (23:22)
[2018-07-13 23:42] VITALS: BP 142/79
[2018-07-14] VITALS (7 sets, daily range): BP systolic 141–181; BP diastolic 69–93
--- NOTE | 2018-07-14 00:57 | NUR ---
Report received from THEATRE PROFESSOR Iban. Patient admitted form ER at 2225 by stretcher.Patient alert/oriented x3 walking around in the room.Denied pain and no SOB. No respiratory distress noted. Head to toe assessment completed. No skin breakdown noted.Patient instructed call for help as needed. Bed in lower position.locked. Call leyva within reach. Will continue to monitor.
[2018-07-14] MEDS ORDERED: METOPROLOL SUCCINATE 25 MG TAB XL PO ONE (05:00)
--- NOTE | 2018-07-14 05:14 | NUR ---
Called Dr. Lassiter, answered Dr. Kitty Ruiz informed about patient's high BP:180/90(right arm) and 179/66(left arm).Ordered received at this time po metoprolol 25mg once.
[2018-07-14] MEDS: SODIUM CHLORIDE 0.9% 1000ML 1,000 ML IV SCH ×3 (05:30→23:07)
[2018-07-14 05:41] LABS: BASOPHILS % 0.2 % (0.0-1.0); EOSINOPHILS # (AUTO) 0.1 (0.0-0.4); EOSINOPHILS % 1.3 % (0.0-6.0); HEMATOCRIT 27.9 % (34.2-44.1); HEMOGLOBIN 9.6 g/dL (12.0-16.0); LYMPHOCYTES # (AUTO) 1.3 (1.0-3.2); LYMPHOCYTES % 15.6 % (18.0-39.1); MEAN CORPUSCULAR HEMOGLOBIN 28.8 pg (28-32); MEAN CORPUSCULAR HGB CONC 34.4 g/dL (31-35); MEAN CORPUSCULAR VOLUME 83.8 fL (81-99); MONOCYTES # (AUTO) 0.6 (0.2-0.8); MONOCYTES % 7.6 % (4.4-11.3); NEUTROPHILS # (AUTO) 6.2 (2.1-6.9); NEUTROPHILS % 74.9 % (38.7-80.0); PLATELET COUNT 249 x10e3/uL (140-360); RED BLOOD COUNT 3.33 x10e6/uL (3.6-5.1)
[2018-07-14] MEDS ORDERED: MORPHINE SULFATE INJ 4 MG/ML INJ 1ML ONE (05:42)
[2018-07-14 06:04] LABS: ALBUMIN 3.8 g/dL (3.5-5.0); ALBUMIN/GLOBULIN RATIO 1.6 (0.8-2.0); ANION GAP 15.4 mmol/L (8-16); CALCIUM 9.5 mg/dL (8.4-10.2); CREATININE, SERUM 1.21 mg/dL (0.57-1.11); POTASSIUM 4.4 mmol/L (3.5-5.1)
--- NOTE | 2018-07-14 06:48 | NUR ---
Report given to TETE Panda.
[2018-07-14] MEDS: METOPROLOL SUCCINATE 25 MG TAB XL PO SCH (08:40)
[2018-07-14] MEDS: SUCRALFATE 1 GM TAB PO SCH ×2 (08:40→16:54)
[2018-07-14] MEDS: OLMESARTAN 20 MG TAB PO SCH (08:40)
[2018-07-14] MEDS ORDERED: CEFUROXIME AXETIL 500 MG PO SCH (09:00)
[2018-07-14] MEDS ORDERED: RALOXIFENE HCL 60 MG TAB PO SCH (09:00)
[2018-07-14] MEDS ORDERED: OMEPRAZOL/SOD BICARB 40MG PWDR PKT PO SCH (09:00)
[2018-07-14] MEDS ORDERED: FENOFIBRATE 48 MG TAB PO SCH (09:00)
[2018-07-14] MEDS: CEFUROXIME AXETIL 250 MG TAB PO SCH ×2 (09:01→16:55)
[2018-07-14] MEDS: PANTOPRAZOLE SOD 40 MG TABEC PO SCH (09:23)
[2018-07-14] MEDS ORDERED: TRAMADOL HCL 50 MG TAB PO PRN (10:15)
[2018-07-14] MEDS ORDERED: ONDANSETRON HCL 4 MG ORAL DISINTEGRATING TAB PO PRN (10:30)
[2018-07-14] MEDS: CHLORDIAZEPOXIDE/CLIDINIUM 1 CAP PO SCH (11:52)
[2018-07-14] MEDS: AZELASTINE HCL 137 MCG NASAL SPRAY NS SCH (11:53)
[2018-07-14] MEDS ORDERED: ACETAMINOPHEN 325 MG TAB PO PRN (13:15)
[2018-07-14] MEDS: ACETAMIN/BUTALBITAL/CAFFEINE TAB PO PRN (13:24)
--- NOTE | 2018-07-14 14:03 | NUR ---
patient being transferred to floor. report called. all personal belongings gathered. vitals stable with no distress.
--- NOTE | 2018-07-14 14:20 | NUR ---
PATIENT ARRIVED TO ROOM 287 AT THIS TIME. SHE IS IN STABLE CONDITION. PATIENT ORIENTED TO ROOM AND POLICIES. CALL LIGHT WITHIN REACH. BED IN THE LOWEST POSITION.
[2018-07-14] MEDS: METFORMIN HCL 500 MG TAB PO SCH (16:55)
--- NOTE | 2018-07-14 18:58 | NUR ---
REPORT GIVEN TO ONCOMING NURSE. PATIENT IS RESTING IN BED. NO ACUTE DISTRESS NOTED. CALL LIGHT WITHIN REACH. BED IN THE LOWEST POSITION.
[2018-07-14] MEDS: FENOFIBRATE 48 MG TAB PO SCH (21:05)
[2018-07-14] MEDS: RALOXIFENE HCL 60 MG TAB PO SCH (21:05)
[2018-07-15] VITALS: BP 137/74
[2018-07-15] MEDS ORDERED: ZANTAC 7575 MG PO (03:05)
[2018-07-15 04:15] VITALS: BP 146/70
[2018-07-15 05:34] LABS: BASOPHILS % 0.3 % (0.0-1.0); EOSINOPHILS # (AUTO) 0.2 (0.0-0.4); EOSINOPHILS % 2.8 % (0.0-6.0); HEMATOCRIT 25.4 % (34.2-44.1); HEMOGLOBIN 8.6 g/dL (12.0-16.0); LYMPHOCYTES # (AUTO) 1.5 (1.0-3.2); LYMPHOCYTES % 24.3 % (18.0-39.1); MEAN CORPUSCULAR HEMOGLOBIN 29.2 pg (28-32); MEAN CORPUSCULAR HGB CONC 33.9 g/dL (31-35); MEAN CORPUSCULAR VOLUME 86.1 fL (81-99); MONOCYTES # (AUTO) 0.5 (0.2-0.8); MONOCYTES % 7.3 % (4.4-11.3); NEUTROPHILS # (AUTO) 4.1 (2.1-6.9); PLATELET COUNT 220 x10e3/uL (140-360); RED BLOOD COUNT 2.95 x10e6/uL (3.6-5.1); RED CELL DISTRIBUTION WIDTH 15.3 % (11.7-14.4)
[2018-07-15 05:54] LABS: ANION GAP 14.6 mmol/L (8-16); BLOOD UREA NITROGEN 17 mg/dL (7-26); BUN/CREATININE RATIO 20 (6-25); CALCIUM 8.9 mg/dL (8.4-10.2); CARBON DIOXIDE 22 mmol/L (22-29); CHLORIDE 111 mmol/L (98-107); CREATININE, SERUM 0.86 mg/dL (0.57-1.11); EST GLOMERULAR FILTRATION RATE > 60 ML/MIN (60-); GLUCOSE 100 mg/dL (74-118); POTASSIUM 3.6 mmol/L (3.5-5.1); SODIUM 144 mmol/L (136-145)
[2018-07-15] MEDS: SODIUM CHLORIDE 0.9% 1000ML 1,000 ML IV SCH ×3 (06:10→20:39)
--- NOTE | 2018-07-15 07:19 | Diagnostic Imaging Report ---
Exam: Abdominal film Clinical History: Renal calculi Comparison: CT abdomen and pelvis without contrast 07/13/2018 DISCUSSION: Proximally 6 mm distal left ureteral calculus is questionably visualized just medial to the left pelvic sidewall. Scattered additional calcifications project over the renal shadows measuring up to 4 mm projecting over the left upper pole. Bowel gas pattern is nonobstructive. Multiple cholecystectomy clips project over the right upper quadrant. Regional skeletal structures are intact. IMPRESSION: 6 mm distal left ureteral calculus appears unchanged in position compared to CT 07/13/2018. Additional bilateral nonobstructing renal calculi seen to better advantage on comparison CT. Signed by: Dr. Javier Wilhelm M.D. on 07/15/2018 7:16 AM
[2018-07-15 08:00] VITALS: BP 139/75
[2018-07-15] MEDS: AZELASTINE HCL 137 MCG NASAL SPRAY NS SCH (08:37)
[2018-07-15] MEDS: CHLORDIAZEPOXIDE/CLIDINIUM 1 CAP PO SCH (08:38)
[2018-07-15] MEDS: METFORMIN HCL 500 MG TAB PO SCH (08:38)
[2018-07-15] MEDS: ACETAMIN/BUTALBITAL/CAFFEINE TAB PO PRN (08:38)
[2018-07-15] MEDS: SUCRALFATE 1 GM TAB PO SCH ×2 (08:38→17:37)
[2018-07-15] MEDS: CEFUROXIME AXETIL 250 MG TAB PO SCH ×2 (08:38→17:38)
[2018-07-15] MEDS: OLMESARTAN 20 MG TAB PO SCH (08:38)
[2018-07-15 08:40] VITALS: BP 139/75
--- NOTE | 2018-07-15 08:40 | NUR ---
Pt received resting in bed. Alert and oriented x4 with IV infusing via left AC. Pt is NPO for CnR. Oriented to staff and surroundings. Encouraged to press call leyva if help needed. All meds given as ordered. Emotional support given. Will monitor
--- NOTE | 2018-07-15 11:15 | NUR ---
Pt left unit for procedure
[2018-07-15] MEDS ORDERED: BELLADONNA/OPIUM 30 MG SUPP RC ONE (11:26)
[2018-07-15] MEDS ORDERED: IOPAMIDOL 610MG/1ML 300 MG/ML VIAL IV ONE (11:26)
[2018-07-15] MEDS ORDERED: GENTAMICIN 80MG/NS 100 ML 100 ML IV ONE (12:18)
[2018-07-15] MEDS ORDERED: FENTANYL CITRATE/PF 100MCG/2 ML INJ ONE ×3 (13:20→17:24)
--- NOTE | 2018-07-15 13:40 | NUR ---
Pt returned from procedure
[2018-07-15 16:00] VITALS: BP 148/69
[2018-07-15] MEDS ORDERED: MIDAZOLAM HCL 2 MG/2 ML VIAL ONE ×2 (17:23→17:24)
[2018-07-15] MEDS: METOPROLOL SUCCINATE 25 MG TAB XL PO SCH (17:37)
--- NOTE | 2018-07-15 19:00 | NUR ---
Receieved change of shift report from AM nurse. Walking rounds completed.
[2018-07-15 20:00] VITALS: BP 165/74
--- NOTE | 2018-07-15 20:35 | Progress Note ---
DATE: INTERNAL MEDICINE PROGRESS NOTE SUBJECTIVE: She is doing well, status post stent placement by Dr. Johnson. PHYSICAL EXAMINATION: VITAL SIGNS: Blood pressure 165/89, temperature 97.8, heart rate 74 per minute, respiratory rate 18 per minute, oxygen saturation 97%. HEART: Shows regular rhythm. Normal S1 and S2 sounds. LUNGS: Clear bilaterally. ABDOMEN: Soft. On the BMP, sodium 144, potassium 3.6, chloride 111, CO2 22, BUN 17, creatinine 0.86, glucose of 100. On the CBC, white blood count 6.34, hemoglobin 8.6, hematocrit 25.4, platelet count 220,000. AST 16, ALT 23, total bilirubin 0.4, alkaline phosphatase 52. FINAL IMPRESSION: 1. Left kidney stone with hydronephrosis, status post stent placement. 2. Uncontrolled hypertension. 3. Uncontrolled diabetes mellitus type 2. 4. Gastroesophageal reflux disease. 5. Acute anemia. 6. Hematuria. PLAN OF TREATMENT: Continue normal saline at 125 mL an hour, morphine 4 mg IV q.4h., metoprolol 25 mg daily, Protonix 40 mg daily, Fioricet 1 tablet daily, raloxifene 60 mg at bedtime, Benicar 20 mg daily. Metformin is going to be placed on hold. Tramadol 50 mg q.6h., Tylenol 650 mg q.6h. as needed for pain or fever, Carafate 1 g twice a day, Zofran 4 mg IV q.4h. as needed, azelastine 1 inhalation daily, cefuroxime 500 mg twice a day, Librax one tablet daily, fenofibrate 40 mg daily. Job#: [id number]
[2018-07-15] MEDS: FENOFIBRATE 48 MG TAB PO SCH (20:38)
[2018-07-15] MEDS: RALOXIFENE HCL 60 MG TAB PO SCH (20:39)
--- NOTE | 2018-07-15 22:32 | NUR ---
Patient AAOx3. Walking around in room with no difficulty noted. Patient placed in shower. Patient denies pain at this time.IV intact and wrapped well for shower. Patient blood glucose 197 no order for coverage.
--- NOTE | 2018-07-15 23:51 | NUR ---
Patient out of shower and back to bed. No c/o at this time.
[2018-07-16] VITALS: BP 139/63
[2018-07-16 04:00] VITALS: BP 141/64
--- NOTE | 2018-07-16 04:00 | NUR ---
Patient c/o constipation. No bm in several days. Given warm prune. Will get order from MD. No BM at this time.
[2018-07-16 08:04] VITALS: BP 157/94
[2018-07-16] MEDS: SUCRALFATE 1 GM TAB PO SCH ×2 (09:00→17:00)
[2018-07-16] MEDS: AZELASTINE HCL 137 MCG NASAL SPRAY NS SCH ×2 (09:03→11:20)
[2018-07-16] MEDS: SODIUM CHLORIDE 0.9% 1000ML 1,000 ML IV SCH ×2 (09:03→15:05)
[2018-07-16] MEDS: PANTOPRAZOLE SOD 40 MG TABEC PO SCH (09:03)
[2018-07-16] MEDS: CEFUROXIME AXETIL 250 MG TAB PO SCH ×2 (09:04→17:20)
[2018-07-16] MEDS: DOCUSATE SODIUM 100 MG CAP PO SCH ×2 (09:04→17:20)
[2018-07-16] MEDS: OLMESARTAN 20 MG TAB PO SCH (09:04)
[2018-07-16] MEDS: CHLORDIAZEPOXIDE/CLIDINIUM 1 CAP PO SCH (09:04)
[2018-07-16 09:05] VITALS: BP 157/94
[2018-07-16] MEDS: METOPROLOL SUCCINATE 25 MG TAB XL PO SCH (09:05)
--- NOTE | 2018-07-16 09:05 | NUR ---
Pt received resting in bed. Alert and oriented x4. All meds given as ordered. Explained to pt reason for Metformin being discontinued. Call leyva within reach. Will monitor
[2018-07-16] MEDS ORDERED: MORPHINE SULFATE INJ 4 MG/ML INJ 1ML IV PRN (10:00)
[2018-07-16 12:00] VITALS: BP 161/76
[2018-07-16 16:00] VITALS: BP 183/72
--- NOTE | 2018-07-16 16:18 | Operative Report ---
DATE OF PROCEDURE: July 15, 2018 PREOPERATIVE DIAGNOSES 1. Microscopic hematuria. 2. Left ureteral calculus. 3. Left hydronephrosis. POSTOPERATIVE DIAGNOSES 1. Microscopic hematuria. 2. Left ureteral calculus. 3. Left hydronephrosis. PROCEDURES 1. Cystourethroscopy with right ureteral catheterization and right retrograde pyelogram (separate procedure for diagnosis of microscopic hematuria). 2. Left-sided ureteroscopy, laser lithotripsy and stent insertion (entirely separate procedure for the diagnosis of left ureteral calculus). 3. Supervision of fluoroscopy. 4. Interpretation of retrograde pyelography. ANESTHESIA: General. ESTIMATED BLOOD LOSS: Minimal. COMPLICATIONS: None. INDICATIONS FOR PROCEDURE: Mrs. Hurley is a very pleasant patient of mine who has been a recurrent stone former. She now presents with a 6 mm distal obstructing stone with failure of trial of passage. She and I had a long discussion about alternatives, risks and benefits including doing nothing, shock wave lithotripsy, ureteroscopy, percutaneous surgery. She voiced understanding of the options, alternatives, risks, and benefits and she elected to proceed. PROCEDURE IN DETAIL: After informed consent was obtained, the patient was taken to the operating suite. Placed in the supine position and underwent general anesthesia by the anesthesia service. She was then placed in the dorsal lithotomy position and sterilely prepped and draped in the standard fashion for cystoscopy. A 22.5-Guamanian cystoscope was inserted in the urethral orifice. Panendoscopy of the bladder revealed no tumor and no stones. Both ureteral orifices were within normal anatomic location and position and seen to efflux clear urine. Bilateral retrograde pyelograms were performed. The right was normal distally. The left revealed a 6 mm obstructing stone in the left distal ureter. A guidewire was inserted. The ureteroscope was driven to the level of the offending stone. Utilizing 365 micron laser fiber, the stone was obliterated into fragments smaller than the wire. At this time, the ureteral stent was deployed with the coil in the renal pelvis and a coil in the bladder. The string was tied at the level of the meatus. The bladder was drained. The patient was awakened from anesthesia and transported to the recovery room in excellent condition. SUPERVISION OF FLUOROSCOPY, INTERPRETATION OF RETROGRADE URETERAL PYELOGRAPHY: I was present throughout the entire procedure and I supervised the use of fluoroscopy for both the retrograde pyelogram portion, as well as the ureteroscopic portion. There was no radiologist present. Attention was turned toward the left and right ureteral orifices, catheterized with a 5-Guamanian open-ended catheter. Retrograde pyelogram was performed revealing delicate ureters on the right. Delicate pelviceal system on the left. A 6 mm distal obstructing stone with proximal hydronephrosis. IMPRESSION 1. Left distal obstructing stone. 2. Left hydronephrosis. 3. Small punctate bilateral stones. Otherwise, normal retrograde pyelograms. Job#: [id number] RI
[2018-07-16] MEDS ORDERED: ULTRAM 50MG50 MG PO (18:03)
--- NOTE | 2018-07-16 18:10 | Discharge Summary ---
HISTORY OF PRESENT ILLNESS: A 72-year-old female who has a past medical history positive for kidney stones, history of hypertension, history of hyperlipidemia, originally came with abdominal pain. She was found to have a left hydronephrosis secondary to a kidney stone. Dr. Johnson placed a stent. The patient is feeling a lot better right now, and patient is going to be going home. PHYSICAL EXAM: VITAL SIGNS: Blood pressure 193/72, temperature 96.8, heart rate 70 per minute, respiratory rate is 20 per minute, oxygen saturation 93%. ABDOMEN: Soft. EXTREMITIES: Show no evidence of cyanosis, edema or trauma. On the BMP: Sodium 144, potassium 3.6, chloride 111, CO2 22, BUN 17, creatinine 0.86, glucose 100. On the CBC: White blood count 6.34, hemoglobin 8.6, hematocrit 25.4, platelet count 220,000. AST 16, ALT 23, total bilirubin 0.4, alkaline phosphatase 52. FINAL IMPRESSIONS: 1. Left kidney stone with hydronephrosis status post stent placement. 2. Severe hypertension. 3. Constipation. 4. Hypertriglyceridemia. PLAN OF TREATMENT: The patient is going to be discharged on Benicar 20 mg daily. Colace 100 mg twice a day. Carafate 1 gram twice a day. Librium 1 tablet daily as needed. Fenofibrate 40 mg daily. I am going to give the patient or he can use Motrin 300 mg q.6 hours as needed for pain. Since SHE IS ALLERGIC TO CODEINE, I cannot give Tylenol No. 3. Continue cefuroxime at 500 mg twice a day. Raloxifene 50 mg at bedtime. Protonix 40 mg daily. She has already been taking tramadol 50 mg q.6 hours. Follow up with Dr. Austin in a week. ELENA AGUILAR MD Job#: [id number] EV
--- NOTE | 2018-07-16 18:17 | NUR ---
Pt given discharge instructions regarding meds, diet, activities, and follow up appointment. Pt verbalized understanding of teaching. Leaving unit in wheelchair to private car
== END 2018-07-16 18:33 | disposition home or self-care (01) | DRG 661 ==
LOC: ER 19:32 → ERHOLD 22:06 → IMCU 22:26 → OBSVTOIN 07-14 10:34 → MED/SURG3 07-14 14:13
PROVIDERS: ADMIT Internal Medicine; ATTEND Internal Medicine
PROC: 0T778DZ Dilation of Left Ureter with Intraluminal Device, Via Natural or Artificial Opening Endoscopic (ICD-10-PCS; 2018-07-15)
PROC: 0TC78ZZ Extirpation of Matter from Left Ureter, Via Natural or Artificial Opening Endoscopic (ICD-10-PCS; principal; 2018-07-15 13:00)
DX: N13.2 Hydronephrosis with renal and ureteral calculous obstruction (principal); R31.29 Other microscopic hematuria; I10 Essential (primary) hypertension; E11.65 Type 2 diabetes mellitus with hyperglycemia; K21.9 Gastro-esophageal reflux disease without esophagitis; D64.9 Anemia, unspecified; N17.9 Acute kidney failure, unspecified; E27.9 Disorder of adrenal gland, unspecified; E78.1 Pure hyperglyceridemia; K59.00 Constipation, unspecified; Z87.442 Personal history of urinary calculi; Z88.5 Allergy status to narcotic agent; Z88.8 Allergy status to other drugs, medicaments and biological substances; Z88.1 Allergy status to other antibiotic agents; Z91.011 Allergy to milk products
CPT/HCPCS: 36415; 74018; 74176; 74420; 80048; 80053; 81001; 82948; 85025; 96361; 96374; 99284; C2617; G0378; J1100; J1580; J1885; J2001; J2250; J2270; J2405; J7030

== ENCOUNTER → 2018-10-14 | Outpatient (CLI) | payer MEDICARE ==
[~2018-10-14] MED LIST changes: +ASTEPRO205.5 MCG/; +BENICAR20 MG PO; +CEFUROXIME500 MG PO; -DEXAMETHASONE SOD PHOS INJ 4 MG/ML VIAL ONE; +FIORINAL 50-321 EACH PO; +LIBRAX CAPSULE1 EACH PO; -LIDOCAINE HCL 2% LOCAL INJ 5 ML SDV VIAL INJ ONE; +METFORMIN HCL500 MG PO; -ONDANSETRON HCL INJ 2MG/ML 2ML 2 MG/ML VIAL ONE; -PROPOFOL IV EMULSION 10 MG/ML 20 ML VIAL ONE; -SEVOFLURANE INHAL SOLN 250 ML PEN BTL ONE; +SUCRALFATE1 GM PO; +TRICOR48 MG PO; +ULTRAM 50MG50 MG PO; +ZANTAC 7575 MG PO; +ZOFRAN4 MG PO
--- NOTE | 2018-10-14 18:27 | Diagnostic Imaging Report ---
Abdomen, two views. History: Stones. Comparison: 07/15/2018 Findings: The intestinal gas pattern is nonobstructive. There no masses. No change in the appearance of a small stone overlying the upper pole of the left kidney. Faint stone in the left pelvis appears unchanged. Evaluation of the right kidney is limited with due to overlying stool and fecal material. The osseous structures are intact. IMPRESSION: Left renal and ureteral stone Signed by: Dr. Tom Armando DO on 10/14/2018 6:23 PM
== END ==
LOC: RAD 15:52
PROVIDERS: ATTEND Urology
DX: N20.0 Calculus of kidney (principal)
CPT/HCPCS: 74018

== ENCOUNTER → 2019-01-14 | Outpatient (CLI) | payer MEDICARE ==
--- NOTE | 2019-01-14 15:20 | Diagnostic Imaging Report ---
Exam: KUB - 2 views Clinical History: Renal calculi Comparison: KUB of 10/14/2018 Findings: At least two 3 mm calcific densities overlie the left renal silhouette and possibly represent small calculi. No other suspicious calcifications. Nonobstructive bowel gas pattern. Mild dextroconvex curvature of the lumbar spine. No acute osseous injury. Status post cholecystectomy. Impression: At least two 3 mm calcific densities overlying the left renal silhouettes appear essentially unchanged from 10/14/2018 and may represent small renal calculi. Signed by: Julian Bergman MD on 01/14/2019 3:16 PM
== END ==
LOC: RAD 13:34
PROVIDERS: ATTEND Urology
DX: N20.0 Calculus of kidney (principal)
CPT/HCPCS: 74018

== ENCOUNTER → 2019-02-05 | Outpatient (CLI) | payer MEDICARE ==
[~2019-02-05] MED LIST changes: +IOPAMIDOL 300MG/ML 100 ML INFUS..BTL IV ONE
[2019-02-05 12:24] LABS: BLOOD UREA NITROGEN 20 mg/dL (7-26); BUN/CREATININE RATIO 25 (6-25); EST GLOMERULAR FILTRATION RATE > 60 ML/MIN (60-)
--- NOTE | 2019-02-05 14:45 | Diagnostic Imaging Report ---
Intravenous pyelogram. History: History of stones and hematuria. Technique: Patient's renal function is normal with GFR greater than 60. A ward maid film was obtained. Multiple sequential images of the abdomen were obtained in the frontal and bilateral oblique projections after intravenous administration of 100 cc of Isovue 300. Findings: Early images demonstrate intestinal gas pattern is nonobstructive. There no masses. Punctate calcific densities are projected over the left upper pole. Cholecystectomy clips are present. The osseous structures are intact. After the intravenous demonstration of contrast, there is prompt bilateral excretion of contrast. The renal collecting systems are normal and symmetric in appearance without evidence of caliceal blunting or filling defect. The ureters have normal course and caliber bilaterally and are visualized in their entire course to the bladder. The bladder is normal in appearance and post void there is no significant residual contrast. IMPRESSION: No evidence of obstructing stone. Small left renal calculi. Signed by: Chuy Melton on 02/05/2019 2:41 PM
== END ==
LOC: DX 11:27
PROVIDERS: ATTEND Urology
DX: N20.0 Calculus of kidney (principal)
CPT/HCPCS: 36415; 74400; 82565; 84520; Q9967

== ENCOUNTER → 2019-03-25 | Outpatient (CLI) | payer MEDICARE ==
[~2019-03-25] MED LIST changes: -IOPAMIDOL 300MG/ML 100 ML INFUS..BTL IV ONE
--- NOTE | 2019-03-25 12:38 | Diagnostic Imaging Report ---
Right upper quadrant abdominal ultrasound Clinical History: Abnormal LFTs Discussion: Sonographic evaluation of the right upper quadrant of the abdomen is performed. The liver has normal size and measures 16.5 cm in length. The liver echotexture is normal, without focal mass. There is no intra or extrahepatic biliary dilatation. The common bile duct measures 5 mm. The gallbladder has been removed. The main portal vein diameter is normal, measuring 12 mm. The pancreatic head, body, and proximal tail demonstrate no abnormality. There is no ascites. The right kidney measures 11.4 cm in length and is normal in size. There is no hydronephrosis, or shadowing renal calculus. In the upper pole right kidney, a 1.3 x 1.0 x 1.2 cm anechoic lesion is noted most compatible with a cyst. Echogenic nonshadowing structures measuring 4 mm are also noted in the upper and lower pole which may represent nonshadowing nonobstructive stones. Segments of the inferior vena cava and aorta visualized demonstrate no abnormality. Impression: 1. Status post cholecystectomy. 2. Small right renal cyst. 3. Possible subcentimeter nonshadowing nonobstructive nephrolithiasis of the right kidney. Signed by: Dr. Cornell Harry MD on 03/25/2019 12:34 PM
== END ==
LOC: US 10:03
PROVIDERS: ATTEND Internal Medicine
DX: R94.5 Abnormal results of liver function studies (principal)
CPT/HCPCS: 76705

== ENCOUNTER → 2019-05-22 | Outpatient (CLI) | payer MEDICARE ==
--- NOTE | 2019-05-22 16:28 | Diagnostic Imaging Report ---
Abdomen, 2 views Clinical indications: Kidney calculus Comparison: 01/14/2019 Findings: Two small, 3 mm calculi overlie the left renal shadow and are unchanged from prior examination. No new calcifications are identified. The bowel gas pattern is nonobstructed. Patient status post cholecystectomy. Impression: Unchanged small left renal calculi. Signed by: Farzad Rose MD on 05/22/2019 4:25 PM
== END ==
LOC: RAD 13:45
PROVIDERS: ATTEND Urology
DX: N20.0 Calculus of kidney (principal)
CPT/HCPCS: 74018

== ENCOUNTER → 2019-10-16 | Outpatient (CLI) | payer MEDICARE ==
--- NOTE | 2019-10-16 12:14 | Diagnostic Imaging Report ---
KUB Comparison: 05/22/2019 History: Bilateral flank pain. Known left renal calculus. Findings: Large amounts of fecal matter in the bowel obscure both kidneys, left more than right. There are tiny calcific densities overlying the region of the left kidney. Uncertain whether these represent renal calculi or bowel contents. No calcific density along the expected course of the ureters. Post cholecystectomy clips. Nonobstructive bowel gas pattern. Kyphoscoliosis of the lumbar spine. Bones otherwise unremarkable. Impression: As above. Signed by: Gilson López MD on 10/16/2019 12:10 PM
== END ==
LOC: RAD 10:55
PROVIDERS: ATTEND Urology
DX: N20.0 Calculus of kidney (principal)
CPT/HCPCS: 74018

== ENCOUNTER → 2019-12-31 | Outpatient (CLI) | payer MEDICARE ==
--- NOTE | 2019-12-31 12:44 | Diagnostic Imaging Report ---
Exam: KUB - 2 views Indication: Renal calculi Comparison: Prior KUBs most recently 10/16/2019, CT abdomen and pelvis 07/13/2018 Findings: Punctate 2 to 3 mm left upper pole renal calculi. No radiographically apparent right renal calculi although small punctate calculi were seen on the CT of 07/13/2018. Nonobstructive bowel gas pattern. No free air. No acute osseous injury. Status post cholecystectomy. Impression: 2 to 3 mm left renal calculi. Signed by: Julian Bergman MD on 12/31/2019 12:40 PM
== END ==
LOC: RAD 11:54
PROVIDERS: ATTEND Urology
DX: N20.0 Calculus of kidney (principal)
CPT/HCPCS: 74018

== ENCOUNTER → 2020-01-16 | Outpatient (CLI) | payer MEDICARE ==
--- NOTE | 2020-01-16 13:38 | Diagnostic Imaging Report ---
History: Neck and back pain. Pain radiates down left arm. Comparison studies: None Technique: Sagittal T1, T2 and IR, axial T2 and axial gradient echo Intravenous contrast: None Findings: Alignment: Approximately 2 to 3 mm degenerative retrolisthesis of C4 on C5 and 2 mm degenerative anterolisthesis of C7 on T1. Cervical lordotic curvature is maintained. Cervicomedullary junction: No abnormalities. Patent foramen magnum. Soft tissues: No T2 hyperintense inflammatory changes. Spinal cord: Cord focally compressed with associated increased T2/STIR hyperintensity cord at C4-C5 and the location of severe degenerative canal stenosis described below. Cord signal changes are indicative of compressive myelopathy (i.e. edema, gliosis or ischemia). Remaining cervical spinal cord is normal in size and signal intensity. Vertebrae: No compression fracture or infection. Incidental few small T1 hyperintense vertebral body hemangiomas. No other neoplasm. Degenerative changes: C2-C3: Mild facet arthrosis. Patent spinal canal and foramina. C3-C4: Mildly degenerated disc. Asymmetric left disc osteophyte complex and thickened ligamentum flavum result in mild canal stenosis. Severe left and mild right foraminal stenosis due to uncovertebral and left facet arthrosis. C4-C5: Moderately degenerated disc with degenerative endplate changes and mild edema along the posterior inferior C4 endplate on the right. Retrolisthesis of L4 and L5 with associated uncovered disc/disc osteophyte complex, thickened ligamentum flavum and facet arthrosis result in severe canal stenosis. Severe bilateral foraminal stenosis due to uncovertebral arthrosis and facet arthrosis (moderate left and mild right. C5-C6: Mildly degenerated disc. Mild canal stenosis due to a small symmetric disc ossify complex and thickened ligamentum flavum. Mild left foraminal stenosis due to uncovertebral arthrosis. Patent right foramen. C6-C7: Mildly degenerated disc. Symmetric disc osteophyte complex does not result significant canal stenosis. Severe left foraminal stenosis due to uncovertebral and facet arthrosis. Patent right foramen. C7-T1: Minimal anterolisthesis of C7 on T1 with associated uncovered disc/disc bulge with small right central disc protrusion and facet arthrosis with mild left foraminal stenosis. Patent canal and right foramen. Incidental findings: Multiple perineural nerve root cysts within multiple thoracic foramina and in the right C7-T1 neural foramen. IMPRESSION: 1. 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 2. Multilevel disc degeneration, worse/moderate at C4-C5. 3. Severe degenerative foraminal stenosis on the left at C3-C4, bilaterally at C4-C5 and on the left at C6-C7. 4. Multilevel facet arthrosis. Signed by: Dr. Javier Tran M.D. on 01/16/2020 1:35 PM
--- NOTE | 2020-01-16 14:06 | Diagnostic Imaging Report ---
Thoracic and lumbar spine MRIs History: Back pain Comparison studies: Included spine from abdomen pelvis CT of 07/13/2018 Technique: Sagittal, axial and coronal T2, sagittal T1 and sagittal STIR through the thoracic and lumbar spines and axial T2 FS and axial oblique proton density through the lumbar spine. Intravenous contrast: None Findings: Number of lumbar vertebral bodies: 5. Alignment: Mild increased thoracic curvature with normal lumbar lordosis. Mild scoliosis with lumbar levocurvature with apex at L2-L3 and thoracic curvature centered at T8-T9. Soft tissues: No T2 hyperintense inflammatory changes. Dorsal paraspinal muscles: Moderate symmetric fatty-replaced atrophic changes in the lumbosacral musculature with mild symmetric fatty-replaced atrophic changes in the remaining lumbar and thoracic musculature. Lower thoracic cord: Normal in size. There is mild prominence of the central spinal canal from T6 to T11. This is a nonspecific finding and may be an incidental anatomical variant for this patient. Alternatively, altered CSF flow dynamics due to severe canal stenosis in the cervical spine is a consideration. No mass or other cord signal abnormalities from T1 to the tip of the conus which terminates at L1-L2. Cauda equina: No masses. No arachnoiditis. Vertebrae: No compression fractures, infection or neoplasm. Thoracic degenerative changes: Mild multilevel disc degeneration with loss of T2 disc signal. Patent spinal canal and neural foramina. Lumbar degenerative changes: L1-L2: Mildly degenerated disc. Patent canal and foramina. L2-L3: Mildly degenerated disc. Patent canal and foramina. L3-L4: Mildly degenerated disc. Patent canal and foramina. L4-L5: Mildly degenerated disc. Asymmetric right disc bulge and thickened ligamentum flavum result in mild canal stenosis. No significant foraminal stenosis. L5-S1: Mildly degenerated disc. Asymmetric right disc bulge and facet arthrosis result in moderate right foraminal stenosis. Patent canal and left foramen. Incidental findings: * Colonic diverticulosis. * Unchanged right adrenal adenoma and indeterminate 1.2 cm left adrenal nodule. * Multiple small T2 hyperintense cysts in both kidneys. Previous left hydronephrosis has resolved. 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 IMPRESSION: Thoracic and lumbar spine MRIs: 1. Thoracolumbar scoliosis with mild degenerative changes. 2. No significant thoracic or lumbar canal stenosis. 3. Moderate right L5-S1 degenerative foraminal stenosis. 4. Mildly prominent central spinal cord canal and incidental findings as described. Please see separate cervical spine MRI report from the same date for further characterization of cervical spinal findings. Signed by: Dr. Javier Tran M.D. on 01/16/2020 2:03 PM
== END ==
LOC: MRI 09:44
PROVIDERS: ATTEND Internal Medicine
DX: M54.2 Cervicalgia (principal); M54.6 Pain in thoracic spine; M54.5 Low back pain
CPT/HCPCS: 72141; 72146; 72148

== ENCOUNTER → 2020-03-11 | Outpatient (CLI) | payer BC, MEDICARE ==
--- NOTE | 2020-03-11 12:19 | Diagnostic Imaging Report ---
Cervical spine, 2 views INDICATION: ^[id number] ^[id number] ^EVALUATE FUSION STATUS Comparison: MRI dated 01/16/2020. Discussion: AP and lateral views of the cervical spine obtained demonstrate postsurgical changes from anterior fusion at C4-5 with obliquely oriented intervertebral body screws and intervertebral disc spacer at C4-5. No definite bridging fusion is noted. Prevertebral soft tissues are within normal limits. Normal alignment of the cervical spine is noted. Mild to moderate degenerative changes are noted, most prominent at the lower cervical spine. Partially visualized lung apices are clear. IMPRESSION: Post surgical changes from anterior fusion at C4-5 as described above. No bridging osseous fusion is noted anteriorly. Normal alignment of the cervical spine is noted. Stable mild to moderate degenerative changes of the lower lumbar spine. Signed by: Jose Diaz MD on 03/11/2020 12:16 PM
== END ==
LOC: RAD 11:29
PROVIDERS: ATTEND Neurological Surgery
DX: M50.20 Other cervical disc displacement, unspecified cervical region (principal); M43.22 Fusion of spine, cervical region
CPT/HCPCS: 72050

== ENCOUNTER → 2020-05-20 | Outpatient (CLI) | payer MEDICARE ==
--- NOTE | 2020-05-20 15:23 | Diagnostic Imaging Report ---
Abdomen, 1 view. History: Renal stones. Findings: Air is scattered throughout nondilated small and large bowel. Several faint 2 to 3 mm calcific densities are projected over the upper pole of the left kidney.. Cholecystectomy clips are present in the right upper quadrant. The osseous structures are intact. IMPRESSION: Non-specific bowel gas pattern. Possible small left renal calculi. Signed by: Chuy Melton on 05/20/2020 3:20 PM
== END ==
LOC: RAD 12:16
PROVIDERS: ATTEND Urology
DX: N20.0 Calculus of kidney (principal)
CPT/HCPCS: 74018

== ENCOUNTER → 2020-09-03 | Outpatient (CLI) | payer MEDICARE | LOC: RAD 15:34 | PROVIDERS: ATTEND Urology | DX: N20.0 Calculus of kidney (principal) | CPT/HCPCS: 74018 ==

== ENCOUNTER → 2020-12-16 | Outpatient (CLI) | payer MEDICARE | LOC: RAD 14:04 | PROVIDERS: ATTEND Psychiatry & Neurology Neurology | DX: M79.606 Pain in leg, unspecified (principal) | CPT/HCPCS: 93970 ==

== ENCOUNTER → 2020-12-28 | Outpatient (CLI) | payer MEDICARE | LOC: RAD 15:45 | PROVIDERS: ATTEND Urology | DX: N20.0 Calculus of kidney (principal) | CPT/HCPCS: 74018 ==

== ENCOUNTER → 2021-01-13 | Outpatient (CLI) | payer MEDICARE | LOC: US 14:40 | PROVIDERS: ATTEND Urology | DX: D35.02 Benign neoplasm of left adrenal gland (principal) | CPT/HCPCS: 76770 ==

== ENCOUNTER → 2021-06-16 | Outpatient (CLI) | payer MEDICARE | LOC: RAD 14:35 | PROVIDERS: ATTEND Internal Medicine | DX: M79.642 Pain in left hand (principal); M79.641 Pain in right hand ==

== ENCOUNTER 2021-11-04 17:23 | Inpatient (IN) | payer MEDICARE ==
[~2021-11-04] VITALS: Ht 157.5 cm; Wt 57.2 kg
[2021-11-04 20:00] VITALS: BP 123/59
[2021-11-04] MEDS ORDERED: FIORINAL PO PRN (20:15)
[2021-11-04] MEDS ORDERED: DOCUSATE SODIUM 100 MG CAP PO PRN (20:15)
[2021-11-04] MEDS ORDERED: DEXTROSE 50% SYRINGE 50 ML IV PRN (20:30)
[2021-11-04] MEDS: INSULIN REGULAR, HUMAN 100 UNIT/1 ML SQ SCH (21:00)
[2021-11-04 21:01] LABS: BASOPHILS % 0.2 % (0.0-1.0); EOSINOPHILS % 0.1 % (0.0-6.0); HEMATOCRIT 33.9 % (34.2-44.1); HEMOGLOBIN 10.6 g/dL (12.0-16.0); LYMPHOCYTES # (AUTO) 0.6 (1.0-3.2); LYMPHOCYTES % 4.3 % (18.0-39.1); MEAN CORPUSCULAR HEMOGLOBIN 28.6 pg (28-32); MEAN CORPUSCULAR HGB CONC 31.3 g/dL (31-35); MEAN CORPUSCULAR VOLUME 91.4 fL (81-99); MONOCYTES # (AUTO) 1.2 (0.2-0.8); MONOCYTES % 7.8 % (4.4-11.3); NEUTROPHILS % 87.1 % (38.7-80.0); PLATELET COUNT 339 x10e3/uL (140-360); RED BLOOD COUNT 3.71 x10e6/uL (3.6-5.1)
[2021-11-04] MEDS: SODIUM CHLORIDE 0.45% 1,000 ML IV SCH (21:01)
[2021-11-04 21:25] LABS: ANION GAP 14.4 mmol/L (8-16); CALCIUM 8.6 mg/dL (8.4-10.2); CREATININE, SERUM 2.18 mg/dL (0.57-1.11); POTASSIUM 3.4 mmol/L (3.5-5.1)
[2021-11-04 21:28] LABS: ALBUMIN 2.5 g/dL (3.5-5.0); BILIRUBIN,DIRECT 0.2 mg/dL (0.0-0.5); CHOL/HDL RATIO 5.2 (3.0-3.6)
[2021-11-05] VITALS (9 sets, daily range): BP systolic 102–149; BP diastolic 57–90
[2021-11-05] MEDS: ONDANSETRON HCL INJ 2MG/ML 2ML 2 MG/ML VIAL IV PRN ×2 (01:17→05:42)
[2021-11-05] MEDS: TRAMADOL HCL 50 MG TAB PO SCH ×4 (01:17→18:00)
[2021-11-05] MEDS: ACETAMINOPHEN 325 MG TAB PO PRN (01:18)
[2021-11-05 01:40] LABS: CLARITY,URINE CLOUDY (CLEAR); COLOR,URINE YELLOW (YELLOW); LEUKOCYTE ESTERASE ,URINE 2+ (NEGATIVE); NITRITE,URINE NEGATIVE (NEGATIVE); PROTEIN,URINE DIPSTICK 2+ (NEGATIVE)
[2021-11-05 01:41] LABS: KETONES,URINE NEGATIVE (NEGATIVE); URINE UROBILINOGEN 0.2 mg/dL (0.2 - 1)
[2021-11-05 01:52] LABS: BACTERIA,URINE MANY /HPF; EPITHELIAL CELLS,URINE FEW /LPF; RBC,URINE 21-50 /HPF (0-5); RENAL EPITHELIAL CELLS,URINE FEW; WBC,URINE (MAN) >50 /HPF (0-5)
[2021-11-05] MEDS: INSULIN REGULAR, HUMAN 100 UNIT/1 ML SQ SCH ×4 (07:30→20:36)
[2021-11-05] MEDS: METOPROLOL SUCCINATE 25 MG TAB XL PO SCH (09:00)
[2021-11-05] MEDS ORDERED: OMEPRAZOL/SOD BICARB 40MG PWDR PKT PO SCH (09:00)
[2021-11-05] MEDS: FENOFIBRATE 48 MG TAB PO SCH (09:00)
[2021-11-05] MEDS: SUCRALFATE 1 GM TAB PO SCH ×2 (09:00→17:00)
[2021-11-05] MEDS: SODIUM CHLORIDE 0.45% 1,000 ML IV SCH ×2 (09:50→20:33)
[2021-11-05 10:23] LABS: BASOPHILS # (AUTO) 0.1 (0.0-0.1); BASOPHILS % 0.3 % (0.0-1.0); EOSINOPHILS % 0.2 % (0.0-6.0); HEMATOCRIT 29.9 % (34.2-44.1); HEMOGLOBIN 9.7 g/dL (12.0-16.0); LYMPHOCYTES # (AUTO) 0.4 (1.0-3.2); LYMPHOCYTES % 1.9 % (18.0-39.1); MEAN CORPUSCULAR HGB CONC 32.4 g/dL (31-35); MEAN CORPUSCULAR VOLUME 89.5 fL (81-99); MONOCYTES # (AUTO) 1.3 (0.2-0.8); MONOCYTES % 6.6 % (4.4-11.3); NEUTROPHILS # (AUTO) 17.2 (2.1-6.9); NEUTROPHILS % 87.9 % (38.7-80.0); PLATELET COUNT 323 x10e3/uL (140-360); RED BLOOD COUNT 3.34 x10e6/uL (3.6-5.1)
[2021-11-05 10:38] LABS: ANION GAP 13.5 mmol/L (8-16); CALCIUM 8.5 mg/dL (8.4-10.2); CREATININE, SERUM 2.15 mg/dL (0.57-1.11); POTASSIUM 3.5 mmol/L (3.5-5.1)
[2021-11-05] MEDS: OLMESARTAN 20 MG TAB PO SCH (17:00)
[2021-11-05] MEDS: AZELASTINE HCL 137 MCG NASAL SPRAY NS SCH (18:00)
[2021-11-06] VITALS (8 sets, daily range): BP systolic 109–126; BP diastolic 61–74
[2021-11-06 06:00] LABS: BASOPHILS # (AUTO) 0.1 (0.0-0.1); BASOPHILS % 0.4 % (0.0-1.0); EOSINOPHILS # (AUTO) 0.1 (0.0-0.4); EOSINOPHILS % 0.8 % (0.0-6.0); HEMATOCRIT 27.6 % (34.2-44.1); HEMOGLOBIN 8.7 g/dL (12.0-16.0); LYMPHOCYTES # (AUTO) 0.7 (1.0-3.2); LYMPHOCYTES % 4.6 % (18.0-39.1); MEAN CORPUSCULAR HEMOGLOBIN 28.6 pg (28-32); MEAN CORPUSCULAR HGB CONC 31.5 g/dL (31-35); MEAN CORPUSCULAR VOLUME 90.8 fL (81-99); MONOCYTES # (AUTO) 1.1 (0.2-0.8); MONOCYTES % 6.7 % (4.4-11.3); NEUTROPHILS # (AUTO) 13.7 (2.1-6.9); NEUTROPHILS % 86.4 % (38.7-80.0); PLATELET COUNT 309 x10e3/uL (140-360); RED BLOOD COUNT 3.04 x10e6/uL (3.6-5.1); RED CELL DISTRIBUTION WIDTH 14.3 % (11.7-14.4)
[2021-11-06 06:21] LABS: ANION GAP 12.5 mmol/L (8-16); CALCIUM 8.5 mg/dL (8.4-10.2); CREATININE, SERUM 1.6 mg/dL (0.57-1.11); POTASSIUM 3.5 mmol/L (3.5-5.1)
[2021-11-06] MEDS: ONDANSETRON HCL 4 MG ORAL DISINTEGRATING TAB PO PRN ×2 (06:21→12:24)
[2021-11-06] MEDS: TRAMADOL HCL 50 MG TAB PO SCH ×4 (06:21→18:00)
[2021-11-06] MEDS: INSULIN REGULAR, HUMAN 100 UNIT/1 ML SQ SCH ×4 (07:30→20:10)
[2021-11-06] MEDS: RALOXIFENE HCL 60 MG TAB PO SCH (08:41)
[2021-11-06] MEDS: OLMESARTAN 20 MG TAB PO SCH (08:41)
[2021-11-06] MEDS: SUCRALFATE 1 GM TAB PO SCH ×2 (08:41→17:00)
[2021-11-06] MEDS: AZELASTINE HCL 137 MCG NASAL SPRAY NS SCH (08:41)
[2021-11-06] MEDS: OMEPRAZOLE 20 MG CAP PO SCH (08:41)
[2021-11-06] MEDS: CHLORDIAZEPOXIDE/CLIDINIUM 1 CAP PO SCH ×3 (08:41→15:00)
[2021-11-06] MEDS: METOPROLOL SUCCINATE 25 MG TAB XL PO SCH (08:42)
[2021-11-06] MEDS: FENOFIBRATE 48 MG TAB PO SCH (08:42)
[2021-11-06] MEDS ORDERED: AZELASTINE HCL 137 MCG NASAL SPRAY NS SCH (09:00)
[2021-11-06] MEDS ORDERED: OLMESARTAN 20 MG TAB PO SCH (09:00)
[2021-11-06] MEDS: ACETAMINOPHEN 325 MG TAB PO PRN (20:00)
[2021-11-07] VITALS (8 sets, daily range): BP systolic 116–150; BP diastolic 66–90
[2021-11-07] MEDS: TRAMADOL HCL 50 MG TAB PO SCH ×3 (05:41→11:31)
[2021-11-07] MEDS: INSULIN REGULAR, HUMAN 100 UNIT/1 ML SQ SCH ×4 (07:30→21:01)
[2021-11-07] MEDS ORDERED: FLUCONAZOLE 100 MG TAB PO ONE (08:30)
[2021-11-07] MEDS: AZELASTINE HCL 137 MCG NASAL SPRAY NS SCH (09:00)
[2021-11-07] MEDS: SUCRALFATE 1 GM TAB PO SCH ×2 (09:00→16:00)
[2021-11-07] MEDS: SITAGLIPTIN 100 MG TAB PO SCH (09:00)
[2021-11-07] MEDS: FENOFIBRATE 48 MG TAB PO SCH (09:24)
[2021-11-07] MEDS: METOPROLOL SUCCINATE 25 MG TAB XL PO SCH (09:24)
[2021-11-07] MEDS: CHLORDIAZEPOXIDE/CLIDINIUM 1 CAP PO SCH (09:24)
[2021-11-07] MEDS: OMEPRAZOLE 20 MG CAP PO SCH (09:24)
[2021-11-07] MEDS: OLMESARTAN 20 MG TAB PO SCH (09:24)
[2021-11-07] MEDS: RALOXIFENE HCL 60 MG TAB PO SCH (09:24)
[2021-11-07] MEDS: TRAMADOL HCL 50 MG TAB PO PRN (15:38)
[2021-11-07 16:08] LABS: BASOPHILS # (AUTO) 0.1 (0.0-0.1); BASOPHILS % 0.4 % (0.0-1.0); EOSINOPHILS # (AUTO) 0.1 (0.0-0.4); EOSINOPHILS % 0.9 % (0.0-6.0); HEMATOCRIT 29.7 % (34.2-44.1); HEMOGLOBIN 9.5 g/dL (12.0-16.0); LYMPHOCYTES # (AUTO) 0.6 (1.0-3.2); LYMPHOCYTES % 4.4 % (18.0-39.1); MEAN CORPUSCULAR HEMOGLOBIN 28.4 pg (28-32); MEAN CORPUSCULAR VOLUME 88.7 fL (81-99); MONOCYTES # (AUTO) 0.7 (0.2-0.8); NEUTROPHILS % 87.9 % (38.7-80.0); PLATELET COUNT 373 x10e3/uL (140-360); RED BLOOD COUNT 3.35 x10e6/uL (3.6-5.1)
[2021-11-08] VITALS: BP 146/70
[2021-11-08 04:00] VITALS: BP 139/72
[2021-11-08] MEDS ORDERED: IOPAMIDOL 610MG/1ML 300 MG/ML VIAL IV ONE (06:20)
[2021-11-08 06:53] LABS: BASOPHILS % 0.3 % (0.0-1.0); EOSINOPHILS # (AUTO) 0.2 (0.0-0.4); HEMATOCRIT 27.8 % (34.2-44.1); LYMPHOCYTES # (AUTO) 0.7 (1.0-3.2); LYMPHOCYTES % 6.8 % (18.0-39.1); MEAN CORPUSCULAR HEMOGLOBIN 28.5 pg (28-32); MEAN CORPUSCULAR HGB CONC 32.4 g/dL (31-35); MONOCYTES # (AUTO) 0.8 (0.2-0.8); MONOCYTES % 7.1 % (4.4-11.3); NEUTROPHILS # (AUTO) 8.9 (2.1-6.9); NEUTROPHILS % 82.2 % (38.7-80.0); PLATELET COUNT 394 x10e3/uL (140-360); RED BLOOD COUNT 3.16 x10e6/uL (3.6-5.1); RED CELL DISTRIBUTION WIDTH 13.8 % (11.7-14.4)
[2021-11-08] MEDS: INSULIN REGULAR, HUMAN 100 UNIT/1 ML SQ SCH ×2 (07:30→11:30)
[2021-11-08] MEDS ORDERED: FENTANYL CITRATE/PF 100MCG/2 ML INJ ONE (07:34)
[2021-11-08 07:58] VITALS: BP 143/67
[2021-11-08] MEDS: SUCRALFATE 1 GM TAB PO SCH (08:59)
[2021-11-08] MEDS ORDERED: FLUCONAZOLE 100 MG TAB PO SCH (09:00)
[2021-11-08] MEDS: SITAGLIPTIN 100 MG TAB PO SCH (09:00)
[2021-11-08] MEDS: METOPROLOL SUCCINATE 25 MG TAB XL PO SCH (09:00)
[2021-11-08] MEDS: OMEPRAZOLE 20 MG CAP PO SCH (09:00)
[2021-11-08] MEDS: RALOXIFENE HCL 60 MG TAB PO SCH (09:00)
[2021-11-08] MEDS: AZELASTINE HCL 137 MCG NASAL SPRAY NS SCH (09:00)
[2021-11-08] MEDS: OLMESARTAN 20 MG TAB PO SCH (09:15)
[2021-11-08] MEDS: TRAMADOL HCL 50 MG TAB PO PRN (11:14)
[2021-11-08 11:56] VITALS: BP 145/70
[2021-11-08] MEDS ORDERED: SEVOFLURANE INHAL SOLN 250 ML PEN BTL ONE (13:02)
[2021-11-08] MEDS ORDERED: LIDOCAINE HCL 2% LOCAL INJ 5 ML SDV VIAL INJ ONE (13:02)
[2021-11-08] MEDS ORDERED: POVIDONE IODINE 0.05% 0.05 % ML PO ONE (13:02)
[2021-11-08] MEDS ORDERED: PROPOFOL IV EMULSION 10 MG/ML 20 ML VIAL ONE (13:02)
[2021-11-08] MEDS ORDERED: ONDANSETRON HCL INJ 2MG/ML 2ML 2 MG/ML VIAL ONE (13:02)
[2021-11-08] MEDS ORDERED: DEXAMETHASONE SOD PHOS INJ 4 MG/ML SDV ONE (13:02)
[2021-11-08] MEDS ORDERED: FENOFIBRATE 48 MG TAB PO SCH (16:30)
== END 2021-11-08 13:05 | disposition home or self-care (01) | DRG 660 ==
LOC: MED/SURG2 17:23
PROVIDERS: ADMIT Internal Medicine; ATTEND Internal Medicine
PROC: 0TP98DZ Removal of Intraluminal Device from Ureter, Via Natural or Artificial Opening Endoscopic (ICD-10-PCS; 2021-11-08)
PROC: BT141ZZ Fluoroscopy of Kidneys, Ureters and Bladder using Low Osmolar Contrast (ICD-10-PCS; 2021-11-08)
PROC: 0T788DZ Dilation of Bilateral Ureters with Intraluminal Device, Via Natural or Artificial Opening Endoscopic (ICD-10-PCS; principal; 2021-11-08 06:42)
DX: T83.593A Infection and inflammatory reaction due to other urinary stents, initial encounter (principal); N13.6 Pyonephrosis; B37.49 Other urogenital candidiasis; E11.22 Type 2 diabetes mellitus with diabetic chronic kidney disease; I12.9 Hypertensive chronic kidney disease with stage 1 through stage 4 chronic kidney disease, or unspecified chronic kidney disease; N18.30 Chronic kidney disease, stage 3 unspecified; B95.5 Unspecified streptococcus as the cause of diseases classified elsewhere; E87.6 Hypokalemia; I95.9 Hypotension, unspecified; K21.9 Gastro-esophageal reflux disease without esophagitis
CPT/HCPCS: 36415; 74018; 74420; 80048; 80061; 80076; 81001; 82948; 83036; 85025; 87086; 87186; 96361; 96372; 97139; 99251; C1758; C1769; C2617; J0696; J1100; J1817; J2001; J2405; J3010; Q0162; U0002

== ENCOUNTER 2023-07-04 14:57 | Emergency (ER) | payer MEDICARE, OTHER ==
[~2023-07-04] VITALS: Ht 157.5 cm; Wt 57.2 kg
[2023-07-04 16:20] VITALS: O2SAT 99
[2023-07-04] MEDS ORDERED: CYCLOBENZAPRINE5 MG PO (16:20)
== END 2023-07-04 16:29 | disposition home or self-care (01) ==
LOC: FSED 15:02
DX: M54.2 Cervicalgia (principal); W07.XXXA Fall from chair, initial encounter; Y92.89 Other specified places as the place of occurrence of the external cause; I10 Essential (primary) hypertension; E11.9 Type 2 diabetes mellitus without complications; Z87.442 Personal history of urinary calculi; Z87.19 Personal history of other diseases of the digestive system
CPT/HCPCS: 70450; 72125; 99283